=== PATIENT | female | born 1985 | race American Indian/Alaskan Native ===

== ENCOUNTER 2018-01-19 02:20 | Inpatient (IN) | payer MEDICAID, OTHER ==
[2018-01-19 03:05] VITALS: BMI 26.9
[2018-01-19] MEDS ORDERED: Lactated Ringer's 1,000 ML IV SCH (03:15)
[2018-01-19] MEDS ORDERED: Nalbuphine 20 mg/ml Inj (1 ml) IVP PRN (03:30)
[2018-01-19 03:41] VITALS: O2SAT 100
[2018-01-19 03:50] LABS: BASO % 0.2 % (0.0-2.0); EOS # 0.1 K/uL (0.0-0.7); EOS % 1.6 % (0.0-4.0); HEMOGLOBIN 11.9 g/dL (12.0-16.0); LYMPH # 1.5 K/uL (1.0-4.3); MEAN CELL VOLUME 84.2 fl (81.0-99.0); MEAN CORPUSCULAR HEMOGLOBIN 28.6 pg (27.0-31.0); MEAN PLATELET VOLUME 9.9 fl (7.2-11.7); MONO # 0.9 K/uL (0.0-0.8); MONO % 9.4 % (0.0-10.0); NEUT # 6.8 K/uL (1.8-7.0); NEUT % 72.8 % (50.0-75.0); NRBC % 0.1 % (0.0-0.0); RBC 4.17 Mil/uL (3.80-5.20); RED CELL DISTRIBUTION WIDTH 14.6 % (11.5-14.5); WHITE BLOOD COUNT 9.3 K/uL (4.8-10.8)
[2018-01-19] MEDS: Lactated Ringer's 1,000 ML IV SCH ×3 (03:50→18:31)
[2018-01-19] MEDS ORDERED: Oxytocin 30 units/LR 500ML 30 U/500 ML BAG IV ONE ×2 (13:39→22:49)
[2018-01-19] MEDS ORDERED: Fentanyl/Bupivacaine HCl 125 ML EPI ONE (17:29)
--- NOTE | 2018-01-19 20:17 | OBADHP ---
Datetime: 01/19/2018 03:15 Admit Comment, IP Provider: 32 y/o F at 39.3 weeks GA with NICOLE 01/23/18 presents to [facility] c/o u terine CTX that began at 23:50. CTX's are painful and occurs every 4-7 mins accoding to pt. FM presen t. No VB or LOF. pt denies fever, headache, CP, SOB, N/V, rash or cald tenderness. All systems reviewed and negative except as above. NKDA meds: PNV and Iron PN Care: w/ Dr Isaias Mccray. PN Labs: GBS neg, Rubella immune, GC/Chlamydia neg, HIV neg, RPR neg, HBsAg neg. OBHx: , CF carrier. PMHx: pituitary cyst PSHx: breast augmentation 03/15/15; D_C 01/13/15. FHx: NC SHx: No tobacco, alcohol or rec drugs. A/P 32y/o F with IUP at 39.3 weeks GA, progressing in labor. --Continuous FHT --Admit to unit. --Initiate labor protocol Case was discussed with over the phone with Dr Isaias Mccray who agreed with above plan. GTolentino PGY-1. Pelvic Type - PN: Adequate Extremities - PN: Normal Abdomen - PN: Normal Back - PN: Normal Breast - PN: Not Done Lungs - PN: Normal Heart - PN: Normal Thyroid - PN: Normal Neurologic - PN: Normal HEENT - PN: Normal General - PN: Normal FHR - Baseline A Provider: 145 Comments, ACOG Physical Exam: Pelvic exam: fingertip/soft/high. Exam performed with nurse Laurie as peanut shaker. IP Hx Assessment: The History has been Reviewed and is Current Vital Signs Provider: Reviewed IP Chief Complaint: Uterine contractions NICHD Variability Prov Fetus A: Moderate 6-25bpm NICHD Accel Fetus A IP Provider: [id number] FHR Category Provider Fetus A: Category I NICHD Decel Fetus A IP Provider: None Dilatation, Provider: FT Effacement, Provider: Soft Station, Provider: High Genitourinary Exam: Normal DTRs - PN: Normal EGA AdmitDate IP: 39.3 IP Adm Impression: Term, intrauterine ; No Active Labor IP Admit Plan: Admit to unit; Initiate labor protocol; Observation/Evaluation
[2018-01-19] MEDS ORDERED: Lidocaine 1% Inj (20ml) ONE (22:39)
--- NOTE | 2018-01-19 23:04 | OBDS ---
DELIVERY PERSONNEL Delivery Doctor: La Nena Mccray MD Senior Hardware Design Engineer: Charline Jennings RN Anesthesiologist: Gideon Sterling MD MATERNAL INFORMATION Delivery Anesthesia: Epidural Medications in Delivery: Oxytocin Estimated Blood Loss (ml): 200ml Maternal Complications: None Provider Comments: delivery of live baby girl 9/9 clear fluid cord with 3vessels placenta inta ct no lacerations no repair ebl 200cc LABOR SUMMARY EDC: 01/23/2018 00:00 No. Babies in Womb: 1 Attempted: No Labor Anesthesia: Epidural LABOR INFORMATION Reason for Induction: Not Applicable Onset of Labor: 01/19/2018 18:00 Oxytocin: Augmentation Group B Beta Strep: Negative Steroids Given: None Reason Steroids Not Administered: Not Applicable MEMBRANES Membranes Rupture Method: Artificial Rupture of Membranes: 01/19/2018 18:45 Amniotic Fluid Color: Clear Amniotic Fluid Amount: Moderate Amniotic Fluid Odor: Normal VAGINAL DELIVERY Episiotomy: None Laceration Extension: N/A Laceration Type: None Laceration Repair Note: none Count Comment: correct PRESENTATION/POSITION BABY A Presentation: Cephalic Cephalic Presentation: Vertex IDENTIFICATION/MEDS BABY A ID Band Number: [id number] ID Band Location: Left Leg; Left Arm
[2018-01-19] MEDS ORDERED: Oxycodone/Acetaminophen 5/325 mg Tab PO PRN ×2 (23:06)
[2018-01-20] MEDS ORDERED: Oxycodone/Acetaminophen 5/325 mg Tab PO PRN ×2 (01:11)
[2018-01-20 06:32] LABS: BASO % 0.1 % (0.0-2.0); EOS # 0.1 K/uL (0.0-0.7); EOS % 0.7 % (0.0-4.0); HEMOGLOBIN 11.6 g/dL (12.0-16.0); LYMPH # 1.7 K/uL (1.0-4.3); LYMPH % 14.4 % (20.0-40.0); MEAN CELL VOLUME 84.7 fl (81.0-99.0); MEAN CORPUSCULAR HEMOGLOBIN 27.9 pg (27.0-31.0); MEAN PLATELET VOLUME 9.7 fl (7.2-11.7); MONO # 1.1 K/uL (0.0-0.8); MONO % 9.6 % (0.0-10.0); NEUT # 8.7 K/uL (1.8-7.0); NEUT % 75.2 % (50.0-75.0); NRBC % 0.1 % (0.0-0.0); RBC 4.14 Mil/uL (3.80-5.20); RED CELL DISTRIBUTION WIDTH 14.6 % (11.5-14.5); WHITE BLOOD COUNT 11.6 K/uL (4.8-10.8)
--- NOTE | 2018-01-20 09:57 | OBPPN ---
Datetime: 01/20/2018 09:52 PP Pain Prov: Within normal limits PP Nausea Prov: Denies PP Flatus Prov: Yes PP BM Prov: Yes PP Breasts Prov: Normal PP Heart Prov: Normal PP Lungs Prov: Normal PP Abdomen/Uterus Prov: Normal PP Lochia Prov: Normal PP Vulva/Perineum Prov: Normal PP CVA Tenderness Prov: Normal PP Extremities Prov: Normal PP Progress Prov: Normal PP Impression Prov: Normal progression PP Plan Prov: Continue present management PP Progress Note Prov: stable ppd 1 continue present care IP PP Procedures: None Vital Signs Provider PP: Reviewed; Within Normal Limits
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
--- NOTE | 2018-01-21 08:35 | OBDCSUM ---
Datetime: 01/21/2018 08:32 Discharged to, Provider: Home Follow up at, Provider: Brenda / Dr Sawyer Disch Instr Activity: Normal activity Disch Instr Diet: Regular Discharge Instructions, Provider: Routine instructions given Discharge Diagnosis, Provider: Term Delivered Follow up in weeks, Provider: 6weeks Disch Referrals: None Contraception discussed, Prov: Yes Disch Activity Restrictions: No sexual activity; Nothing in vagina - Lawrence, tampons, douche
[2018-01-21 15:50] VITALS: BP 115/72; PULSE 79; RESP 20; TEMP 98.4
== END 2018-01-21 11:20 | disposition home or self-care (01) | DRG 373 ==
LOC: H.EROB2 02:20 → H.L&D 03:06 → H.OB/GYN 01-20 01:05
PROVIDERS: ADMIT Specialist; ATTEND Specialist
PROC: 10E0XZZ Delivery of Products of Conception, External Approach (ICD-10-PCS; principal; 2018-01-19)
PROC: 4A1HXCZ Monitoring of Products of Conception, Cardiac Rate, External Approach (ICD-10-PCS; 2018-01-19)
DX: O80 Encounter for full-term uncomplicated delivery (principal); Z37.0 Single live birth; Z3A.39 39 weeks gestation of pregnancy